=== PATIENT | male | born 1975 | race African-American/Black ===

== ENCOUNTER 2023-02-01 11:02 | Inpatient (IN) | payer OTHER ==
[~2023-02-01] VITALS: Ht 175.3 cm; Wt 65.1 kg
[2023-02-01 11:30] LABS: GLUCOMETER DEV NAME(LOC) ER.6; GLUCOSE,POINT OF CARE 216 MG/DL (70-110)
[2023-02-01 12:00] LABS: BASOPHILS % (AUTO) 0.1 % (0.0-2.0); EOSINOPHILS % (AUTO) 0 % (1.0-6.0); LYMPHOCYTES # (AUTO) 0.3 K/uL (1.0-4.8); LYMPHOCYTES % (AUTO) 3.2 % (22.0-44.0); MEAN CORPUSCULAR HGB CONC 32.3 G/dL (31.0-37.0); MEAN CORPUSCULAR VOLUME 93 fL (80-100); MONOCYTES # (AUTO) 0.8 K/uL (0.1-1.0); MONOCYTES % (AUTO) 7.6 % (2.0-9.0); NEUTROPHILS # (AUTO) 9.3 K/uL (1.8-7.7); PLATELET COUNT (AUTO) 147 K/uL (150-450); RED BLOOD CELL COUNT(AUTO) 3.66 MIL/uL (4.50-5.90); RED CELL DISTRIBUTION WIDTH 19.9 % (11.5-14.5); WHITE BLOOD COUNT (AUTO) 10.4 K/uL (4.5-11.0)
[2023-02-01 12:09] LABS: NEUTROPHILS % (AUTO) 89.1 % (40.0-70.0)
[2023-02-01 12:16] LABS: ALANINE AMINOTRANSFERASE 99 U/L (12-78); ALBUMIN 3.4 g/dL (3.4-5.0); ALKALINE PHOSPHATASE 306 U/L (46-116); ANION GAP 22 mmol/L (8-16); ASPARTATE AMINOTRANSFERASE 236 U/L (15-37); CALCIUM, TOTAL 9.2 mg/dL (8.8-10.5); CARBON DIOXIDE 23 mmol/L (22-29); CHLORIDE 86 mmol/L (98-107); GLOMERULAR FILTR. RATE CALC > 60 mL/min (>60); GLUCOSE,RANDOM 203 mg/dL (70-110); SODIUM SERUM 131 mmol/L (136-145); TOTAL PROTEIN, SERUM 9.2 g/dL (6.4-8.2); UREA NITROGEN, BLOOD 9 mg/dL (7-18)
[2023-02-01] MEDS ORDERED: SODIUM CHLORIDE 0.9% 1,000 ML IV ONE (13:00)
[2023-02-01] MEDS ORDERED: MAGNESIUM SULFATE 4 GM/WATER 100 ML IV PRN (14:30)
[2023-02-01] MEDS ORDERED: MAGNESIUM OXIDE 400 MG TABLET PO PRN (14:30)
[2023-02-01] MEDS ORDERED: MAGNESIUM HYDROXIDE SUSPENSION 30 ML UDCUP PO PRN (14:30)
[2023-02-01] MEDS ORDERED: INSULIN LISPRO 100 UNITS/ML SQ PRN (14:30)
[2023-02-01] MEDS ORDERED: POTASSIUM CHL 10 MEQ/WATER 50 ML IV PRN (14:30)
[2023-02-01] MEDS ORDERED: MAGNESIUM SULFATE 2 GM/WATER 50 ML IV PRN (14:30)
[2023-02-01] MEDS ORDERED: ACETAMINOPHEN 325 MG TABLET PO PRN (14:30)
[2023-02-01] MEDS ORDERED: DEXTROSE 50%-WATER 25 GM/50 ML SYRINGE IVP PRN (14:30)
[2023-02-01] MEDS ORDERED: MAGNESIUM SULFATE 2 GM, MVI, ADULT NO.1 WITH VIT K 10 ML, THIAMINE 100 MG, FOLIC ACID 1... IV ONE ×5 (15:00)
[2023-02-01 15:26] LABS: HEMOGLOBIN A1C 4.8 % (3.8-5.6)
[2023-02-01] MEDS: ONDANSETRON HCL 4 MG/2 ML VIAL IVP PRN ×2 (15:41→22:36)
[2023-02-01] MEDS: POTASSIUM CHLORIDE 20 MEQ ER TABLET PO PRN ×2 (15:41→22:30)
[2023-02-01 16:20] VITALS: BP 132/76; PULSE 78; RESP 18; TEMP 98.2
[2023-02-01 18:02] LABS: GLUCOMETER DEV NAME(LOC) 5S.1B; GLUCOSE,POINT OF CARE 141 MG/DL (70-110)
[2023-02-01 19:28] VITALS: BP 144/91; PULSE 70; RESP 18; TEMP 98.6
[2023-02-01] MEDS: FAMOTIDINE 20 MG TABLET PO SCH (20:34)
[2023-02-01] MEDS: LORazepam 2 MG/ML VIAL IVP PRN (20:44)
[2023-02-01 22:21] LABS: GLUCOMETER DEV NAME(LOC) 5S.1B; GLUCOSE,POINT OF CARE 146 MG/DL (70-110)
[2023-02-01 23:27] VITALS: BP 159/93; PULSE 85; RESP 19; TEMP 98.5
[2023-02-02] MEDS: LORazepam 2 MG/ML VIAL IVP PRN (02:40)
[2023-02-02 05:16] VITALS: BP 139/89; PULSE 80; RESP 19; TEMP 98.9
[2023-02-02 07:01] LABS: ALANINE AMINOTRANSFERASE 61 U/L (12-78); ALBUMIN 2.8 g/dL (3.4-5.0); ALKALINE PHOSPHATASE 238 U/L (46-116); ANION GAP 11 mmol/L (8-16); ASPARTATE AMINOTRANSFERASE 143 U/L (15-37); BILIRUBIN,TOTAL 1.5 mg/dL (0.1-1.0); CALCIUM, TOTAL 8.3 mg/dL (8.8-10.5); CARBON DIOXIDE 29 mmol/L (22-29); CHLORIDE 90 mmol/L (98-107); CREATININE 0.53 mg/dL (0.60-1.30); GLOMERULAR FILTR. RATE CALC > 60 mL/min (>60); GLUCOSE,RANDOM 91 mg/dL (70-110); POTASSIUM 3.3 mmol/L (3.5-5.1); SODIUM SERUM 130 mmol/L (136-145); TOTAL PROTEIN, SERUM 7.7 g/dL (6.4-8.2); UREA NITROGEN, BLOOD 7 mg/dL (7-18)
[2023-02-02 07:15] VITALS: BP 147/82; PULSE 75; RESP 18; TEMP 98.5
[2023-02-02] MEDS: FAMOTIDINE 20 MG TABLET PO SCH (08:12)
[2023-02-02 11:30] VITALS: BP 142/80; PULSE 69; RESP 20; TEMP 98
[2023-02-02] MEDS: POTASSIUM CHLORIDE 20 MEQ ER TABLET PO PRN (13:00)
[2023-02-02] MEDS ORDERED: NICOTINE 21 MG/24 HOUR PATCH TD SCH (15:45)
[2023-02-02 15:58] VITALS: BP 133/88; PULSE 83; RESP 18; TEMP 98
[2023-02-02] MEDS ORDERED: MAGNESIUM SULFATE 2 GM, MVI, ADULT NO.1 WITH VIT K 10 ML, THIAMINE 100 MG, FOLIC ACID 1... IV ONE ×5 (16:00)
[2023-02-02 17:03] LABS: POTASSIUM 3.8 mmol/L (3.5-5.1)
[2023-02-02 18:42] LABS: GLUCOMETER DEV NAME(LOC) 5S.1B; GLUCOSE,POINT OF CARE 94 MG/DL (70-110)
[2023-02-02 20:01] LABS: GLUCOMETER DEV NAME(LOC) 5N.2C; GLUCOSE,POINT OF CARE 96 MG/DL (70-110)
== END 2023-02-02 16:50 | disposition left against medical advice (07) | DRG 53 ==
LOC: EMS 11:24 → 5S 14:26
PROVIDERS: ADMIT Internal Medicine; ATTEND Internal Medicine
DX: R56.9 Unspecified convulsions (principal); E87.20 Acidosis, unspecified; K70.9 Alcoholic liver disease, unspecified; E86.0 Dehydration; E87.6 Hypokalemia; Z53.21 Procedure and treatment not carried out due to patient leaving prior to being seen by health care provider; F10.239 Alcohol dependence with withdrawal, unspecified; R73.9 Hyperglycemia, unspecified; Z91.199 Patient's noncompliance with other medical treatment and regimen due to unspecified reason
CPT/HCPCS: 70450; 71045; 80053; 82962; 83036; 83735; 84132; 85025; 93005; 99285; J2060; J2405; J3411; J3475; J3490; J7030; 36415-L1; 36415-TC

== ENCOUNTER 2023-02-21 22:19 | Emergency (ER) | payer OTHER ==
[~2023-02-21] VITALS: Ht 175.3 cm; Wt 78.0 kg
[2023-02-21 22:24] VITALS: BP 160/92; PULSE 92; RESP 17; TEMP 98.7
[2023-02-21] MEDS ORDERED: MAGNESIUM SULFATE 2 GM, MVI, ADULT NO.1 WITH VIT K 10 ML, THIAMINE 100 MG, FOLIC ACID 1... IV ONE ×5 (22:45)
[2023-02-21] MEDS ORDERED: LORazepam 2 MG/ML VIAL IVP ONE (22:45)
[2023-02-21] MEDS ORDERED: LORazepam 2 MG TABLET PO ONE (23:15)
== END 2023-02-22 00:21 | disposition left against medical advice (07) ==
LOC: EMS 22:21
DX: F10.239 Alcohol dependence with withdrawal, unspecified (principal); R56.9 Unspecified convulsions; F12.90 Cannabis use, unspecified, uncomplicated; Z98.890 Other specified postprocedural states; Y90.9 Presence of alcohol in blood, level not specified
CPT/HCPCS: 99283; J3411; J3475; J3490; J7030